=== PATIENT | female | born 1955 | race Caucasian/White ===

== ENCOUNTER → 2017-07-15 | Day surgery (SDC) | payer BC ==
[~2017-07-15] VITALS: Ht 165.1 cm; Wt 106.2 kg
[~2017-07-15] MED LIST: *morphine SULFATE 8 MG/ML PERIprocedure ONLY ONE; ACETAMINOPHEN 500 MG CPLT PO PRN; APIX5TAB PO; ATROPINE SULFATE 1% OPHT SOLN 2 ML BTL ONE; BALANCED SALT SOLN OPHT IRRIG 15 ML BTL ONE; CHLORHEXIDINE GLUCONATE 2 % 1 PACK (2 CLOTHS) TOPICAL PRN; CLON1 PO; DEXAMETHASONE SOD PHOS 4 MG/ML VIAL ONE; DO NOT ADM ANY ANTICOAGULANT DRUGS PRN; EPINEPHrine HCL (1:1000) 1 MG/ML VIAL ONE; GLYCOPYRROLATE 1 MG/5 ML SYRINGE IV PUSH ONE; HYDR25TA5 PO; INSULIN HUMAN REGULAR 1,000 UNITS/10 ML VIAL SQ PRN; LACTATED RINGER'S 1000 ML IV PRN; LEVO.075 PO; LIDOCAINE HCL 1% PF 5 ML AMPULE OTHER ONE; METOPROLOL TARTRATE 25 MG TAB PO PRN; MIDAZOLAM HCL 2 MG/2 ML VIAL IV ONE; ONDANSETRON HCL 4 MG/2 ML VIAL IV PRN; PERC10TA27 PO; POVIDONE IODINE 5% (ANTISEPSIS KIT) 4 APPLICATIONS EACH NARE PRN; PROP225T PO; PROPOFOL 200 MG/20 ML AMP IV ONE; PROZ40CA PO; SODIUM CHLORID 0.9% 500 ML IV PRN; STERILE WATER FOR INJECTION 20 ML VIAL ONE; TOBRAMYCIN/DEXAMETHASONE OPTH OINT 3.5 GM TUBE ONE; TRIAMCINOLONE ACETONIDE 40 MG/ML VIAL ONE; ceFAZolin INJ 1,000 MG VIAL ONE; ePHEDrine/NS 25 MG/5 ML SYR IV ONE; oxyCODONE/ACETAMINOPHEN 5 MG/325 MG TAB PO PRN
[2017-07-15 10:00] LABS: AUTOMATED NEUTROPHIL # 2.8 TH/MM3 (1.8-7.7); BASOPHIL % 0.6 % (0.0-2.0); EOSINOPHIL # 0.2 TH/MM3 (0-0.4); EOSINOPHIL % 4.3 % (0.0-4.0); HEMATOCRIT 32.5 % (35.0-46.0); HEMO FLAGS DIFF FINAL; LYMPH % 21.9 % (9.0-44.0); MEAN CELL VOLUME 97.3 FL (80.0-100.0); MEAN CORPUSCULAR HEMOGLOBIN 33.8 PG (27.0-34.0); MEAN CORPUSCULAR HGB CONC 34.7 % (32.0-36.0); MONO % 10.5 % (0.0-8.0); NEUT % 62.7 % (16.0-70.0); PLATELET COUNT 191 TH/MM3 (150-450); RED BLOOD COUNT 3.34 MIL/MM3 (4.00-5.30); RED CELL DISTRIBUTION WIDTH 12.6 % (11.6-17.2); WHITE BLOOD COUNT 4.4 TH/MM3 (4.0-11.0)
[2017-07-15] MEDS: CYCLOPENTOLATE HCL 1% OPHT SOLN 2 ML BTL LEFT EYE SCH ×4 (10:05→11:00)
[2017-07-15] MEDS: PHENYLEPHRINE HCL 2.5% OPTH SOLN 2 ML BTL LEFT EYE SCH ×4 (10:05→11:00)
[2017-07-15] MEDS: ATROPINE SULFATE 1% OPHT SOLN 5 ML BTL LEFT EYE SCH ×4 (10:05→11:00)
[2017-07-15] MEDS: TROPICAMIDE 1% OPHT SOLN 15 ML BTL LEFT EYE SCH ×4 (10:05→11:00)
--- NOTE | 2017-07-15 14:36 | EKG ---
Date Performed: 07/15/2017 Time Performed: 08:48:08 PTAGE: 62 years EKG: SINUS BRADYCARDIA BORDERLINE ECG NO PREVIOUS TRACING DOCTOR: William Ventura Interpretating Date/Time 07/15/2017 14:35:15
[2017-07-15 15:27] VITALS: BP 151/66; PULSE 64; RESP 18; TEMP 98.3; O2SAT 96
--- NOTE | 2017-07-15 22:24 | MP ---
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 PROCEDURE Trans pars plana vitrectomy with a retinectomy, removal of laser photocoagulation and exchange of silicone oil, left eye. SURGEON Dr. Rebel Bustamante ANESTHESIA General laryngeal mask anesthesia. INDICATIONS Ms. Craven is a 62-year-old woman with a history of a retinal detachment in her left eye that was treated with a vitrectomy, scleral buckle elsewhere. She presented to me in the fall of 2015 and underwent an elective vitrectomy and silicone oil to try and repair the detachment on October 22, 2016. She did well initially, but then her inferior retina detached. I total here I thought we would need to do a vitrectomy and membranectomy because the inferior retina was probably taut and foreshortened. She went up to [facility] and had a second opinion and they concurred. She decided to proceed electively with a vitrectomy, membranectomy, laser and exchange of silicone oil left eye. The risks and benefits of the surgery were discussed with the patient and informed consent was obtained. No guarantee was made as to visual outcome. PROCEDURE IN DETAIL She was brought to [facility] operating room one and placed on the operating table. Appropriate anesthesia monitoring devices were applied and she was placed under general anesthesia using a laryngeal mask. The left eye was identified as the operative site and prepped and draped in the usual and sterile fashion. A lid speculum was placed. The microscope was brought around and adjusted. At this time, an appropriate time-out was called with the surgical team agreeing to the proposed procedure and surgical site. The Minor 23-gauge vitrectomy system was employed and the cannulas were placed first at about 3 o'clock 3.5 mm posterior to the limbus. An infusion cannula was affixed to it. Two additional trocar cannulas were placed at 10 at 2 o'clock. Using the Endoilluminator light pipe and laser probe, the posterior extent of the subretinal fluid was marked with a single band of laser spots avoiding the macula. Next, intraocular diathermy was performed on the retina the length of the retinectomy which went from approximately 4 o'clock down and around to approximately 8:30 o'clock. A retinectomy using the vitrectomy cutter was then done along the length of the diathermized line. The silicone oil was removed and replaced with air. The air was replaced with Perfluoron to flatten the retina and then laser was performed along the length of the retinectomy. The anterior portion of the retina anterior to the retinectomy was trimmed with a vitrectomy cutter. The Perfluoron was exchanged for air and the air exchanged for 1000 centistokes silicone oil. The number of laser spots using the endolaser lighted probe and the 300 milliwatt power and 0.1-second exposure was 1008. The lid speculum was removed and the temporal sclerotomies were closed with single 7-0 Vicryl. The superior nasal sclerotomy when the cannula was removed was self-sealing. Atropine drops were placed on the cornea. Subconjunctival actions of Ancef 125 mg in 0.5 mL and Decadron 2 mg in 0.5 ml were given at separate sites. The eye was left with good pressure and no visible silicone leaks. The lid speculum was removed and the patient was undraped. TobraDex ointment was placed on the cornea and then the left eye was patched and shielded. The patient had the laryngeal mask removed in the room and was returned to recovery in good condition laying on her right side. When awake and alert, she will be asked to begin face-down positioning. MD RANDY Coffey/ /1:29 PM /10:03 PM
== END | disposition home or self-care (01) ==
LOC: HSDC 08:18
PROVIDERS: ATTEND Ophthalmology
DX: H33.22 Serous retinal detachment, left eye (principal); I10 Essential (primary) hypertension; E78.00 Pure hypercholesterolemia, unspecified; I48.91 Unspecified atrial fibrillation; I25.10 Atherosclerotic heart disease of native coronary artery without angina pectoris; E03.9 Hypothyroidism, unspecified; E66.9 Obesity, unspecified; Z68.39 Body mass index [BMI] 39.0-39.9, adult; Z86.73 Personal history of transient ischemic attack (TIA), and cerebral infarction without residual deficits; Z79.01 Long term (current) use of anticoagulants; Z79.899 Other long term (current) drug therapy
CPT/HCPCS: 00145; 67043; 85025; 93005; C1814; J0171; J0690; J1100; J2250; J2270; J3010; J7120; J3301

== ENCOUNTER → 2017-11-04 | Day surgery (SDC) | payer BC ==
[~2017-11-04] VITALS: Ht 165.1 cm; Wt 108.9 kg
[~2017-11-04] MED LIST changes: +*morphine SULFATE 4 MG/ML PERIprocedure ONLY ONE; -*morphine SULFATE 8 MG/ML PERIprocedure ONLY ONE; +BACITRACIN TOP OINT 15 GM TUBE ONE; +CLON.5 PO; -CLON1 PO; +DEXAMETHASONE SOD PHOS 20 MG/5 ML VIAL ONE; +DEXAMETHASONE SOD PHOS 4 MG/ML VIAL IV ONE; -DEXAMETHASONE SOD PHOS 4 MG/ML VIAL ONE; -EPINEPHrine HCL (1:1000) 1 MG/ML VIAL ONE; +EPINEPHrine HCL (1:1000) 30 MG/30 ML VIAL ONE; -INSULIN HUMAN REGULAR 1,000 UNITS/10 ML VIAL SQ PRN; +LACTATED RINGER'S 1000 ML INJ 1,000 ML IV ONE; +LACTATED RINGER'S 1000 ML INJ 500 ML IV ONE; -LIDOCAINE HCL 1% PF 5 ML AMPULE OTHER ONE; +LIDOCAINE HCL 1% PF 5 ML SYRINGE OTHER ONE; +LOSA50TA PO; -MIDAZOLAM HCL 2 MG/2 ML VIAL IV ONE; +MIDAZOLAM HCL 2 MG/2 ML VIAL ONE; +ONDANSETRON HCL 4 MG/2 ML VIAL IM PRN; +ONDANSETRON HCL 4 MG/2 ML VIAL IV ONE; -ONDANSETRON HCL 4 MG/2 ML VIAL IV PRN; +ONDANSETRON HCL 4 MG/2 ML VIAL IV PUSH PRN; +PHENYLEPH/NS 1000 MCG/10 ML SYR IV ONE; +PRAV40TA2 PO; -SODIUM CHLORID 0.9% 500 ML IV PRN; -TRIAMCINOLONE ACETONIDE 40 MG/ML VIAL ONE; +TRIAMCINOLONE ACETONIDE/PF 40 MG/ML OPTH VIAL ONE; -ePHEDrine/NS 25 MG/5 ML SYR IV ONE; +ePHEDrine/NS 25 MG/5 ML SYRINGE IV ONE
[2017-11-04 06:51] LABS: BASOPHIL % 0.7 % (0.0-2.0); EOSINOPHIL # 0.2 TH/MM3 (0-0.4); EOSINOPHIL % 3.1 % (0.0-4.0); HEMATOCRIT 34.2 % (35.0-46.0); HEMOGLOBIN 12.1 GM/DL (11.6-15.3); LYMPH % 24.6 % (9.0-44.0); LYMPHOCYTE # 1.2 TH/MM3 (1.0-4.8); MEAN CELL VOLUME 97.8 FL (80.0-100.0); MEAN CORPUSCULAR HEMOGLOBIN 34.6 PG (27.0-34.0); MEAN CORPUSCULAR HGB CONC 35.4 % (32.0-36.0); MEAN PLATELET VOLUME 7.1 FL (7.0-11.0); MONO % 11.4 % (0.0-8.0); MONOCYTE # 0.6 TH/MM3 (0-0.9); NEUT % 60.2 % (16.0-70.0); PLATELET COUNT 196 TH/MM3 (150-450); RED CELL DISTRIBUTION WIDTH 13.2 % (11.6-17.2); WHITE BLOOD COUNT 5.1 TH/MM3 (4.0-11.0)
[2017-11-04] MEDS: ATROPINE SULFATE 1% OPHT SOLN 5 ML BTL LEFT EYE SCH ×4 (07:00→07:45)
[2017-11-04] MEDS: TROPICAMIDE 1% OPHT SOLN 15 ML BTL LEFT EYE SCH ×4 (07:00→07:45)
[2017-11-04] MEDS: PHENYLEPHRINE HCL 2.5% OPTH SOLN 2 ML BTL LEFT EYE SCH ×4 (07:00→07:45)
[2017-11-04] MEDS: CYCLOPENTOLATE HCL 1% OPHT SOLN 2 ML BTL LEFT EYE SCH ×4 (07:00→07:45)
--- NOTE | 2017-11-04 09:51 | MP ---
cc: RITA BUSTAMANTE M.D. DATE OF SURGERY 11/04/2017 PREOPERATIVE DIAGNOSIS History of complicated recurrent retinal detachment repaired under silicone oil now for removal of silicone oil right eye using a vitrectomy. SURGEON Dr. Rita Bustamante ANESTHESIA General laryngeal mask anesthesia. INDICATIONS Mrs. Craven is a 62-year-old woman with a history of complicated retinal detachment in her left eye. She has been stable under silicone oil after inferior retinectomy and now wishes to have the silicone oil removal. The risks and benefits of surgery including the risk of redetachment were discussed with the patient, but she wished to proceed. PROCEDURE NOTE As the left eye was identified as the operative site and then prepped and draped in the usual sterile fashion, a lid speculum was placed. Using the Minor 23-gauge vitrectomy system, the trocar cannulas were placed 3-1/2 mm posterior to the limbus. The first was placed at approximately the 4 o'clock position after first displacing the conjunctiva with a beveled entrance to the sclera. It was verified to be in the posterior chamber and an infusion cannula was affixed to it. Two additional trocar cannulas were placed in a similar fashion at approximately 10 and 2 o'clock. Using the Viscous fluid extractor, the silicone oil was removed. Using a TB syringe with a 30 gauge needle, the emulsified silicone oil gathered under the endothelium was removed with aspiration to allow visualization of the posterior pole. There was some retrained Perfluoron carbon which was removed with a soft tipped linear extrusion needle after which an air-fluid exchange was performed. Plugs were placed back in the eye and the cannulas were removed one by one with tamponade of the site with a cotton swab and diathermy to the overlying conjunctival wound leaving the eye with good pressure and no visible air leaks. Subconjunctival injections of Ancef 125 mg in half ml and Decadron 2 mg in half ml were given at separate sites. The lid speculum was removed and the patient was undraped. TobraDex ointment was placed on the cornea and then the left eye was patched and shielded. The patient had laryngeal mass removed in the room and was returned to recovery in good condition laying on her right side. When awake and alert, she will be asked to assume face down positioning. MD RANDY Coffey/DJL 9:27 AM 9:33 AM
[2017-11-04 13:40] VITALS: BP 120/49; PULSE 55; RESP 16; O2SAT 97
== END | disposition home or self-care (01) ==
LOC: HSDC 05:52
PROVIDERS: ATTEND Ophthalmology
DX: Z48.810 Encounter for surgical aftercare following surgery on the sense organs (principal); H33.22 Serous retinal detachment, left eye; I48.91 Unspecified atrial fibrillation
CPT/HCPCS: 00145; 67121; 85025; J0171; J0690; J1100; J2250; J2270; J2370; J2405; J3010; J7120; J3300